=== PATIENT | female | born 1960 | race Caucasian/White ===

== ENCOUNTER 2019-02-11 16:07 | Emergency (ER) | payer OTHER ==
[~2019-02-11] VITALS: Ht 149.9 cm; Wt 68.0 kg
[2019-02-11 17:34] LABS: microscopic required? NO
[2019-02-11 17:41] LABS: urine erythrocyte NEGATIVE (NEGATIVE)
[2019-02-11 17:46] LABS: BASOPHIL % 0 % (0-2); PLATELET COUNT 422 x10^3mcL (130-400); RED CELL DISTRIBUTION WIDTH 14.8 % (11.5-14.5)
[2019-02-11 17:51] LABS: AMPHETAMINE QUAL UR NONE DETECTED (See below)
[2019-02-11 18:15] LABS: CHLORIDE SERUM 95 mmol/L (98-107); CREATININE SERUM 1.1 mg/dL (0.6-1.0); GFR1 54 mL/min; GLUCOSE SERUM 116 mg/dL (74-106); POTASSIUM SERUM 4.2 mmol/L (3.5-5.1); SODIUM SERUM 132 mmol/L (136-145)
[2019-02-11 18:27] LABS: ALBUMIN 2.6 g/dL (3.4-5.0); ALKALINE PHOSPHATASE 188 U/L (46-116); ALT/SGPT 10 U/L (14-59); AST/SGOT 37 U/L (15-37); BILIRUBIN TOTAL 0.3 mg/dL (0.20-1.00); CHOLESTEROL 240 mg/dL (<200); HDL CHOLESTEROL 48 mg/dL (40-60); LIPASE 209 IU/L (73-393); T4(THYROXINE) 9.5 ug/dL (4.7-13.3); TOTAL PROTEIN, SERUM 6.9 g/dL (6.4-8.2)
[2019-02-11 21:38] VITALS: BP 133/67
== END 2019-02-11 21:38 | disposition short-term general hospital (02) ==
LOC: ED 16:07
PROVIDERS: Emergency Medicine
DX: S32.019A Unspecified fracture of first lumbar vertebra, initial encounter for closed fracture (principal); C85.95 Non-Hodgkin lymphoma, unspecified, lymph nodes of inguinal region and lower limb; E46 Unspecified protein-calorie malnutrition; Z88.5 Allergy status to narcotic agent; Z98.890 Other specified postprocedural states; X58.XXXA Exposure to other specified factors, initial encounter; Y93.89 Activity, other specified; Y92.89 Other specified places as the place of occurrence of the external cause; Y99.8 Other external cause status
CPT/HCPCS: 82962; G0480; J1956; J2405; J3010; J7030; Q0092